=== PATIENT | male | born 1960 | race Caucasian/White ===

== ENCOUNTER 2018-04-08 21:09 | Emergency (ER) | payer BC ==
--- NOTE | 2018-04-08 21:50 | EDPHY ---
H & P Stated Complaint: right leg injury - Personal History Current Tetanus Diphtheria and Acellular Pertussis (TDAP): Yes - Medical/Surgical History Hx Asthma: No Hx Chronic Respiratory Disease: No Hx Diabetes: No Hx Cardiac Disease: No Hx Renal Disease: No Hx Cirrhosis: No Hx Alcoholism: No Hx HIV/AIDS: No Hx Splenectomy or Spleen Trauma: No - Social History Smoking Status: Never smoked Time Seen by Provider: 04/08/18 21:50 Constitutional: Initial Vital Signs Temperature (C) 36.7 C 04/08/18 21:16 Heart Rate 63 04/08/18 21:16 Respiratory Rate 20 04/08/18 21:16 Blood Pressure 131/82 H 04/08/18 21:16 O2 Sat (%) 96 04/08/18 21:16 O2 Delivery Mode Room Air Allergies/Adverse Reactions: No Known Allergies Allergy (Unverified 04/08/18 21:16) Home Medications: Medication Instructions Recorded Wellbutrin Sr 04/08/18 Medical Decision Making - Diagnostics Imaging: Discussed imaging studies w/ scallop shucker Radiologist, I viewed and interpreted images myself - Diagnostics Imaging Results: Imaging Impressions Extremity Ultrasound 04/08/18 21:56 Impression: Suspect subcutaneous calf hematoma. No evidence of active arterial bleeding. Findings discussed with Emergency Department physician, Dr. Ojeda at 2017 23:12. Tibia/Fibula X-Ray 04/08/18 21:56 Impression: Negative. No acute fracture. ED Course/Re-evaluation: CHIEF COMPLAINT: Calf injury HISTORY OF PRESENT ILLNESS: The patient is a 57 y/o male arriving with his family member complaining of right calf pain secondary to a fall this evening. He fell off a ladder and struck the medial aspect of his calf on one of the rungs during the fall. He had [id number] pain at that time and rested on the couch with ice on the injury with some alleviation of pain. When he tried to stand and walk on it a couple hours later he had significant pain and says, "it felt like it was on fire." He is able to hobble around by bearing weight along the outside of his foot if needed. His encouraged him to come to the ED for evaluation. He takes a daily full strength aspirin, no anticoagulants. REVIEW OF SYSTEMS: A 10 point review of systems was performed and is negative with the exception of the elements mentioned in the history of present illness. PHYSICAL EXAM: HR, BP, O2 Sat, RR. Temp noted General Appearance: Alert, well hydrated, appropriate, and non-toxic appearing. Head: Atraumatic without scalp tenderness or obvious injury Eyes: Pupils equal, round, reactive to light and accommodation, EOMI, no trauma , no injection. Nose: Atraumatic, no rhinorrhea, clear. Throat: Mucus membranes moist. Neck: Supple,nontender, no lymphadenopathy. Respiratory: No retractions, no distress, no wheezes, and no accessory muscle use. Lungs are clear to auscultation bilaterally. Cardiovascular: Regular rate and rhythm, no murmurs, rubs, or gallops. Good capillary refill all extremities. Gastrointestinal: Abdomen is soft, nontender, non-distended, no masses, no rebound, no guarding, no peritoneal signs. Musculoskeletal: Hematoma and tenderness to right medial calf, otherwise atraumatic. Normal active ROM of all extremities. Neurological: Alert, appropriate, and interactive. Nonfocal. Skin: No rashes, good turgor, no nodules on palpation. Past medical history: Denies Past surgical history: Denies Family history: Noncontributory Social history: . Family member at bedside. Employed. Lives in [place]. DIAGNOSTICS/PROCEDURES/CRITICAL CARE TIME: Leg US: informal read shows probable small amount of venous extravasation. Tib/fib x-ray: negative for fracture DIFFERENTIAL DIAGNOSIS: The differential diagnosis for the patient's knee injury included but was not limited to fracture, ligamentous injury, contusion, muscular strain, and meniscus injury. MEDICAL DECISION MAKING: This is a healthy 57 y/o male who presents with a hematoma to his right medial calf secondary to striking the rung on a ladder today. He is neurovascularly intact without bony tenderness. He is able to bear weight, but it does cause pain. Plan for leg US and x-ray to further evaluate. Imaging shows possible venous extravasation. Discussed with Dr. Ramirez, surgery. He will see patient in his office tomorrow for follow up. Reassessed patient and discussed results. He will be discharged in pressure dressing with contusion care instructions. He understands he needs to follow up with Dr. Ramirez tomorrow for reevaluation. Return precautions discussed. He is comfortable with plan for discharge. (Erik Dow) 11:26 p.m.- The patient was reassessed by me. He is feeling much better. He thinks that the hematoma has improved. Ultrasound results demonstrated hematoma, questionable very small pulsatile activity, however unclear if this is small arterial leak from very distal vessel or artifact. Given that patient's symptoms have improved, I feel he is suitable for discharge. He will follow-up tomorrow with Dr. Ramirez. He was advised of return precautions and instructed to perform rice. (Zahida Ojeda) Departure - Departure Disposition: Home, Routine, Self-Care Clinical Impression: Hematoma of lower limb Condition: Good Instructions: Contusion in Adults (ED) Additional Instructions: 1. Use Tylenol and ibuprofen as directed on the packaging as needed for pain over the next few days. 2. Apply ice packs to sore areas intermittently if helpful for pain. 3. Keep pressure bandage in place until follow up tomorrow. 4. Follow up with Dr. Ramirez tomorrow for reevaluation without fail. 5. Return to the ED for severe pain, weakness, numbness, or other worsening of condition. Referrals: Tiny Romero MD [Primary Care Provider] - As per Instructions Niles Ramirez MD [Medical Doctor] - As per Instructions Report Scribed for: Erik Dow Report Scribed by: Marissa Coelho Date of Report: 04/08/18 Time of Report: 22:21
[2018-04-08 23:29] VITALS: BP 128/75
== END 2018-04-08 23:26 | disposition home or self-care (01) ==
DX: S80.12XA Contusion of left lower leg, initial encounter (principal); W11.XXXA Fall on and from ladder, initial encounter